=== PATIENT | female | born 1950 | race Caucasian/White ===

== ENCOUNTER → 2017-04-22 | Outpatient (CLI) | payer OTHER | LOC: FIMAGING 10:57 | PROVIDERS: ATTEND Family Medicine | DX: Z12.31 Encounter for screening mammogram for malignant neoplasm of breast (principal) | CPT/HCPCS: G0202 ==

== ENCOUNTER → 2018-08-19 | Outpatient (CLI) | payer OTHER | LOC: FIMAGING 14:30 | PROVIDERS: ATTEND Legal Medicine | DX: Z12.31 Encounter for screening mammogram for malignant neoplasm of breast (principal) ==